=== PATIENT | male | born 1975 | race Caucasian/White ===

== ENCOUNTER 2018-02-02 10:54 | Emergency (ER) | payer BC, OTHER ==
[2018-02-02 11:51] VITALS: BP 120/72
--- NOTE | 2018-02-02 12:23 | UC ---
Bite Injury/Animal HPI - HPI Summary HPI Summary: 42-year-old male here with a complaint of a HUMAN bite to the right forearm. This happened this morning at his place of employment. There is an abrasion and a bruise and appears there may have been a superficial skin penetration. It is not full-thickness. The HIV and hepatitis status of the source is not known at this time. The patient himself has no history of hepatitis or HIV. The area is minimally tender he has good range of motion of the arm he feels well. - History of Current Complaint Chief Complaint: UCBiteInjury Stated Complaint: HUMAN BITE Time Seen by Provider: 02/02/18 12:02 Pain Intensity: 2 - Allergies/Home Medications Allergies/Adverse Reactions: Allergies Allergy/AdvReac Type Severity Reaction Status Date / Time No Known Allergies Allergy Verified 02/02/18 11:52 PMH/Surg Hx/FS Hx/Imm Hx Previously Healthy: Yes - Surgical History Surgical History: None - Family History Known Family History: Positive: None - Social History Alcohol Use: Daily Substance Use Type: None Smoking Status (MU): Never Smoked Tobacco Review of Systems Constitutional: Negative Skin: Other - SEE HPI Eyes: Negative ENT: Negative Respiratory: Negative Cardiovascular: Negative Gastrointestinal: Negative Motor: Negative Neurovascular: Negative Musculoskeletal: Negative Neurological: Negative Psychological: Negative Is Patient Immunocompromised?: No All Other Systems Reviewed And Are Negative: Yes Physical Exam Triage Information Reviewed: Yes Appearance: Well-Appearing, No Pain Distress, Well-Nourished Vital Signs: Initial Vital Signs Temp 97.6 F 02/02/18 11:47 Pulse 74 02/02/18 11:47 Resp 18 02/02/18 11:47 BP 120/72 02/02/18 11:47 Pulse Ox 99 02/02/18 11:47 Vital Signs Reviewed: Yes Eye Exam: Normal Eyes: Positive: Conjunctiva Clear Neck exam: Normal Neck: Positive: Supple Respiratory: Positive: No respiratory distress Musculoskeletal Exam: Normal Musculoskeletal: Positive: Strength Intact Neurological Exam: Normal Neurological: Positive: Alert, Muscle Tone Normal Psychological Exam: Normal Psychological: Positive: Age Appropriate Behavior Skin: Positive: Other - On the right forearm there is a 2 cm diameter area of ecchymosis with a slight abrasion there is no obvious open skin break. Bite Injury Course/Dx - Course Course Of Treatment: Discussed this case with Dr. Horowitz infectious disease doctor. He said as long as the provider did not have blood in his mouth during the bite this is not a blood exposure. I discussed this with the patient and he said that his knowledge that biter appeared normal without any blood in his mouth. Therefore at this time this is not a blood exposure. The plan is to treat with Augmentin and up to date his tetanus. Back in 2013 when he was bitten more severely his hepatitis B was nonreactive. Patient believes he had his hepatitis B series at that time. He is to check with his primary care doctor to determine status of hepatitis B. The plan is to follow up with either Dr. Pruitt for infectious disease R Dr. Varela for occupational medicine. - Differential Dx/Diagnosis Provider Diagnoses: HUMAN BITE RIGHT FOREARM Discharge - Sign-Out/Discharge Documenting (check all that apply): Patient Departure All imaging exams completed and their final reports reviewed: No Studies - Discharge Plan Condition: Stable Disposition: HOME Prescriptions: Amoxicillin/Clavulanate TAB* [Augmentin TAB 875*] 875 mg PO BID #20 tab Mupirocin 1 applic TOPICAL TID #22 gm Patient Education Materials: Human Bite (ED) Referrals: Romaine Torres MD [Primary Care Provider] - Dandre Varela MD [Medical Doctor] - Alanis BARRIENTOS,Donte Garcia [Medical Doctor] - Additional Instructions: FOLLOW UP WITH YOUR PRIMARY CARE DOCTOR TO DETERMINE YOUR HEPATITIS B IMMUNITY STATUS. FOLLOW UP WIT OCCUPATIONAL MEDICINE, DR VARELA, OR INFECTIOUS DISEASE, DR KING, NEEDED. YOU WERE GIVEN THE TETANUS/DIPTHERIA; TDap, IMMUNIZATION TODAY IN CLINIC. GET RECHECKED FOR ANY WORSENING OF YOUR CONDITION OR QUESTIONS OR CONCERNS. - Billing Disposition and Condition Condition: STABLE Disposition: Home
[2018-02-02] MEDS ORDERED: Tetan/Diph/Pertus SYR(Tdap)* 0.5 ML SYR(BOOSTRIX) use SYR IM ONE (12:40)
== END 2018-02-02 12:56 | disposition home or self-care (01) ==
LOC: UCEAST 10:54
DX: S51.851A Open bite of right forearm, initial encounter (principal); W50.3XXA Accidental bite by another person, initial encounter; Y92.9 Unspecified place or not applicable
CPT/HCPCS: 90715; 99212; G0463